=== PATIENT | male | born 1950 | race Caucasian/White ===

== ENCOUNTER 2017-04-05 10:39 | Inpatient (IN) | payer MEDICARE ==
[~2017-04-05] VITALS: Ht 175.3 cm; Wt 82.0 kg
[~2017-04-05 10:39] MED LIST: ACET325 PO; ALBU90OI INH; ALBU90OI6; ALBU90OI61 INH; AMLO5 PO; ASPI325 PO; ASPI325EC PO; ASPI81CH PO; ATOR20 PO; Aspirin325 MG PO; BENZ100A PO; CLOP75 PO; DELTASONE20 MG PO; FURO20 PO; ISOMON20 PO; ISOMON30 PO; Isosorbide Mono60 MG PO; LANS30EC PO; LEVO750 PO; LEVSOD100 PO; LEVSOD50 PO; LEVSOD75 PO; LISI5 PO; MEGA MULTIVIT1 EAC1 PO; METO50 PO; MULVITMIND PO; NITR.4SL SL; NITR.6SL SL; PANT40; PANT40 PO; POTCHL20ER PO; PRED20 PO; Plavix75 MG PO; Q-Tussin100 MG/5 M PO; RANI150; RANO500T PO; ROBITUSSIN COU118 M1 PO; ROSU10TA PO; THYR60 PO; ZANTAC
[2017-04-05 11:38] LABS: BASOPHILS ABSOLUTE AUTO 0.02 K/mm3 (0.00-0.23); BASOPHILS PERCENT AUTO 0 % (0-2); EOSINOPHILS ABSOLUTE AUTO 0.14 K/mm3 (0.00-0.68); EOSINOPHILS PERCENT AUTO 2 % (0-6); Hematocrit 45.7 % (37.0-53.0); Hemoglobin 15.7 g/dL (13.5-17.5); IMMATURE GRAN ABSOLUTE AUTO 0.02 K/mm3 (0.00-0.10); IMMATURE GRAN PERCENT AUTO 0 % (0-1); LYMPHOCYTES ABSOLUTE AUTO 2.07 K/mm3 (0.84-5.20); LYMPHOCYTES PERCENT AUTO 28 % (21-46); MONOCYTES ABSOLUTE AUTO 0.56 K/mm3 (0.16-1.47); MONOCYTES PERCENT AUTO 8 % (4-13); Mean Corpuscular HGB 32.9 pg (26.0-34.0); Mean Corpuscular HGB Conc 34.4 g/dL (31.5-36.5); Mean Corpuscular Volume 96 fL (80-100); Mean Platelet Volume 9.9 fL (9.1-12.4); NEUTROPHILS ABSOLUTE AUTO 4.67 K/mm3 (1.96-9.15); NEUTROPHILS PERCENT AUTO 62 % (41-73); Platelet Count 187 K/mm3 (150-400); RDW Coefficient Variation 14.9 % (11.7-14.2); RDW Standard Deviation 52.1 fL (35.1-46.3); Red Blood Cell Count 4.77 M/mm3 (4.30-5.90); White Blood Cell Count 7.48 K/mm3 (4.00-11.30)
[2017-04-05] MEDS ORDERED: NITR.4SL SL (11:45)
[2017-04-05] MEDS ORDERED: LOSA25 PO (11:46)
[2017-04-05] MEDS ORDERED: Pantoprazole So40 MG PO (11:46)
[2017-04-05] MEDS ORDERED: Isosorbide Mono60 MG PO (11:47)
[2017-04-05 11:55] LABS: Alanine Aminotransfer (ALT/SGP 22 U/L (12-78); Albumin, Blood 3.8 g/dL (3.4-5.0); Albumin/Globulin Ratio 1.1 (0.8-1.8); Alk Phos 107 U/L (50-136); Anion Gap 8 mmol/L (6-16); Aspartate Aminotrans (AST/SGOT 19 U/L (12-37); Blood Urea Nitrogen 12 mg/dL (8-24); CO2, Blood 27 mmol/L (21-32); Chloride, Blood 105 mmol/L (98-108); Creatinine, Blood 0.75 mg/dL (0.60-1.20); Globulin, Blood 3.4 g/dL (2.2-4.0); Glomerular Filtration Rate >60 (60-); Glucose, Blood 89 mg/dL (70-99); Potassium, Blood 3.5 mmol/L (3.5-5.5); Sodium, Blood 140 mmol/L (136-145); Total Protein, Blood 7.2 g/dL (6.4-8.2); Troponin I <0.015 ng/mL (0.000-0.040)
[2017-04-05 11:59] LABS: PCO2 Arterial 31.8 mmHg (35-45); PO2 Arterial 52.9 mmHg (80-100); pH Blood Arterial 7.48 (7.35-7.45)
[2017-04-05] MEDS ORDERED: LEVSOD50 PO (14:54)
[2017-04-06 05:38] LABS: Anion Gap 11 mmol/L (6-16); Blood Urea Nitrogen 16 mg/dL (8-24); Bun/Creatinine Ratio 21.9 (12.0-20.0); CO2, Blood 26 mmol/L (21-32); Chloride, Blood 101 mmol/L (98-108); Creatinine, Blood 0.73 mg/dL (0.60-1.20); Glomerular Filtration Rate >60 (60-); Glucose, Blood 134 mg/dL (70-99); Potassium, Blood 3.6 mmol/L (3.5-5.5); Sodium, Blood 138 mmol/L (136-145)
[2017-04-07 05:38] LABS: BASOPHILS ABSOLUTE AUTO 0.01 K/mm3 (0.00-0.23); BASOPHILS PERCENT AUTO 0 % (0-2); EOSINOPHILS PERCENT AUTO 0 % (0-6); Hematocrit 45.7 % (37.0-53.0); Hemoglobin 15.3 g/dL (13.5-17.5); IMMATURE GRAN ABSOLUTE AUTO 0.08 K/mm3 (0.00-0.10); IMMATURE GRAN PERCENT AUTO 0 % (0-1); LYMPHOCYTES ABSOLUTE AUTO 1.33 K/mm3 (0.84-5.20); LYMPHOCYTES PERCENT AUTO 7 % (21-46); MONOCYTES ABSOLUTE AUTO 0.65 K/mm3 (0.16-1.47); MONOCYTES PERCENT AUTO 4 % (4-13); Mean Corpuscular HGB 32.6 pg (26.0-34.0); Mean Corpuscular HGB Conc 33.5 g/dL (31.5-36.5); Mean Corpuscular Volume 97 fL (80-100); Mean Platelet Volume 10.3 fL (9.1-12.4); NEUTROPHILS ABSOLUTE AUTO 16.37 K/mm3 (1.96-9.15); NEUTROPHILS PERCENT AUTO 89 % (41-73); Platelet Count 184 K/mm3 (150-400); RDW Coefficient Variation 15.2 % (11.7-14.2); Red Blood Cell Count 4.69 M/mm3 (4.30-5.90); White Blood Cell Count 18.44 K/mm3 (4.00-11.30)
[2017-04-07 06:04] LABS: Anion Gap 9 mmol/L (6-16); Blood Urea Nitrogen 19 mg/dL (8-24); Bun/Creatinine Ratio 25.1 (12.0-20.0); CO2, Blood 26 mmol/L (21-32); Calcium, Blood 8.9 mg/dL (8.5-10.1); Chloride, Blood 104 mmol/L (98-108); Creatinine, Blood 0.76 mg/dL (0.60-1.20); Glomerular Filtration Rate >60 (60-); Glucose, Blood 118 mg/dL (70-99); Sodium, Blood 139 mmol/L (136-145)
[2017-04-08 05:17] LABS: Hematocrit 45.5 % (37.0-53.0); Hemoglobin 15.4 g/dL (13.5-17.5); Mean Corpuscular HGB 32.9 pg (26.0-34.0); Mean Corpuscular HGB Conc 33.8 g/dL (31.5-36.5); Mean Corpuscular Volume 97 fL (80-100); Mean Platelet Volume 10.1 fL (9.1-12.4); Platelet Count 221 K/mm3 (150-400); RDW Coefficient Variation 15.1 % (11.7-14.2); RDW Standard Deviation 53.5 fL (35.1-46.3); Red Blood Cell Count 4.68 M/mm3 (4.30-5.90); White Blood Cell Count 18.84 K/mm3 (4.00-11.30)
[2017-04-08 05:36] LABS: Anion Gap 7 mmol/L (6-16); Blood Urea Nitrogen 18 mg/dL (8-24); Bun/Creatinine Ratio 23.2 (12.0-20.0); CO2, Blood 29 mmol/L (21-32); Calcium, Blood 8.6 mg/dL (8.5-10.1); Chloride, Blood 105 mmol/L (98-108); Creatinine, Blood 0.78 mg/dL (0.60-1.20); Glomerular Filtration Rate >60 (60-); Glucose, Blood 99 mg/dL (70-99); Potassium, Blood 3.6 mmol/L (3.5-5.5); Sodium, Blood 141 mmol/L (136-145)
[2017-04-08] MEDS ORDERED: Aspir 8181 MG PO (13:39)
[2017-04-08] MEDS ORDERED: FURO40 PO (13:39)
[2017-04-08] MEDS ORDERED: PRED20 PO (13:41)
[2017-04-08] MEDS ORDERED: SPIR25 PO (13:42)
[2017-04-08] MEDS ORDERED: DEEP SEA44 ML (13:44)
== END 2017-04-08 14:12 | disposition home or self-care (01) | DRG 189 ==
LOC: ER 10:39 → MEDS 13:09 → ENPENDDIS 04-08 10:30 → MEDS 04-08 14:12
PROVIDERS: Emergency Medicine; Internal Medicine
DX: J96.21 Acute and chronic respiratory failure with hypoxia (principal); I50.33 Acute on chronic diastolic (congestive) heart failure; J44.9 Chronic obstructive pulmonary disease, unspecified; Z99.81 Dependence on supplemental oxygen; I25.10 Atherosclerotic heart disease of native coronary artery without angina pectoris; G47.33 Obstructive sleep apnea (adult) (pediatric); E78.5 Hyperlipidemia, unspecified; E03.9 Hypothyroidism, unspecified; R73.9 Hyperglycemia, unspecified; T38.0X5A Adverse effect of glucocorticoids and synthetic analogues, initial encounter; Z88.2 Allergy status to sulfonamides; Z88.8 Allergy status to other drugs, medicaments and biological substances; Z91.012 Allergy to eggs; Z91.011 Allergy to milk products; Z95.5 Presence of coronary angioplasty implant and graft; Z79.02 Long term (current) use of antithrombotics/antiplatelets; Z79.899 Other long term (current) drug therapy
CPT/HCPCS: 36415; 36600; 71046; 71260; 80048; 80053; 82803; 82947; 83880; 84484; 85025; 85027; 85379; 93005; 93010; 94640; 94760; 94761; 96374; 99285; J1650; J1940; J2920; J2930; Q9967

== ENCOUNTER 2017-11-06 12:03 | Emergency (ER) | payer MEDICARE ==
[~2017-11-06] VITALS: Ht 167.6 cm; Wt 81.7 kg
[~2017-11-06 12:03] MED LIST changes: +Aspir 8181 MG PO; +DEEP SEA44 ML; +FURO40 PO; +LOSA25 PO; +Pantoprazole So40 MG PO; +SPIR25 PO
== END 2017-11-06 13:16 | disposition home or self-care (01) ==
LOC: ER 12:03
DX: S09.90XA Unspecified injury of head, initial encounter (principal); S01.111A Laceration without foreign body of right eyelid and periocular area, initial encounter; S60.512A Abrasion of left hand, initial encounter; S60.511A Abrasion of right hand, initial encounter; S40.812A Abrasion of left upper arm, initial encounter; S40.811A Abrasion of right upper arm, initial encounter; S80.212A Abrasion, left knee, initial encounter; S80.211A Abrasion, right knee, initial encounter; Z91.011 Allergy to milk products; Z91.012 Allergy to eggs; Z88.2 Allergy status to sulfonamides; Z91.018 Allergy to other foods; Z88.5 Allergy status to narcotic agent; Z88.8 Allergy status to other drugs, medicaments and biological substances; Z79.899 Other long term (current) drug therapy; Z79.51 Long term (current) use of inhaled steroids; E03.9 Hypothyroidism, unspecified; I25.2 Old myocardial infarction; I48.91 Unspecified atrial fibrillation; F17.200 Nicotine dependence, unspecified, uncomplicated; W01.0XXA Fall on same level from slipping, tripping and stumbling without subsequent striking against object, initial encounter
CPT/HCPCS: 12011; 70450; 99284-25

== ENCOUNTER 2018-03-24 00:29 | Inpatient (IN) | payer MEDICARE ==
[~2018-03-24] VITALS: Ht 172.7 cm; Wt 80.0 kg
== END 2018-03-24 15:00 | disposition short-term general hospital (02) | DRG 246 ==
LOC: MHTC NI 00:29 → PCU 09:59
PROC: 4A023N6 Measurement of Cardiac Sampling and Pressure, Right Heart, Percutaneous Approach (ICD-10-PCS; principal; 2018-03-24)
PROC: 027337Z Dilation of Coronary Artery, Four or More Arteries with Four or More Drug-eluting Intraluminal Devices, Percutaneous Approach (ICD-10-PCS; 2018-03-24)
PROC: B211YZZ Fluoroscopy of Multiple Coronary Arteries using Other Contrast (ICD-10-PCS; 2018-03-24)
DX: I25.10 Atherosclerotic heart disease of native coronary artery without angina pectoris (principal); I10 Essential (primary) hypertension; E03.9 Hypothyroidism, unspecified; Z85.46 Personal history of malignant neoplasm of prostate; Z87.891 Personal history of nicotine dependence; J44.9 Chronic obstructive pulmonary disease, unspecified; Z95.0 Presence of cardiac pacemaker
CPT/HCPCS: 85347; 92978; 92979; 93288; 93306; 93458; 93571; 99152; 99153; C1753; C1769; C1887; C1894; J1644; J2250; J3010; J7030; Q9967

== ENCOUNTER → 2018-03-24 | Outpatient (CLI) | payer MEDICARE ==
[2018-03-24 10:31] LABS: BASOPHILS ABSOLUTE AUTO 0.04 K/mm3 (0.00-0.23); BASOPHILS PERCENT AUTO 1 % (0-2); EOSINOPHILS PERCENT AUTO 1 % (0-6); Hematocrit 49.5 % (37.0-53.0); Hemoglobin 16.6 g/dL (13.5-17.5); IMMATURE GRAN ABSOLUTE AUTO 0.07 K/mm3 (0.00-0.10); IMMATURE GRAN PERCENT AUTO 1 % (0-1); LYMPHOCYTES ABSOLUTE AUTO 1.13 K/mm3 (0.84-5.20); LYMPHOCYTES PERCENT AUTO 14 % (21-46); MONOCYTES PERCENT AUTO 9 % (4-13); Mean Corpuscular HGB 34.1 pg (26.0-34.0); Mean Corpuscular HGB Conc 33.5 g/dL (31.5-36.5); Mean Corpuscular Volume 102 fL (80-100); Mean Platelet Volume 9.6 fL (9.1-12.4); NEUTROPHILS ABSOLUTE AUTO 6.01 K/mm3 (1.96-9.15); NEUTROPHILS PERCENT AUTO 75 % (41-73); Platelet Count 197 K/mm3 (150-400); RDW Coefficient Variation 14.7 % (11.7-14.2); RDW Standard Deviation 55.6 fL (35.1-46.3); Red Blood Cell Count 4.87 M/mm3 (4.30-5.90); White Blood Cell Count 8.05 K/mm3 (4.00-11.30)
[2018-03-24 10:43] LABS: International Normalized Ratio 1.23; Prothrombin Time Results 12.5 Sec (9.7-11.5)
[2018-03-24 10:44] LABS: Anion Gap 7 mmol/L (6-16); Blood Urea Nitrogen 13 mg/dL (8-24); Bun/Creatinine Ratio 16.2 (12.0-20.0); CO2, Blood 29 mmol/L (21-32); Calcium, Blood 9.2 mg/dL (8.5-10.1); Chloride, Blood 106 mmol/L (98-108); Glomerular Filtration Rate >60 (60-); Glucose, Blood 84 mg/dL (70-99); Potassium, Blood 3.7 mmol/L (3.5-5.5); Sodium, Blood 142 mmol/L (136-145); Troponin I <0.015 ng/mL (0.000-0.040)
== END | disposition home or self-care (01) ==
LOC: LAB 10:22 → LAB SHORT 10:22
PROVIDERS: Internal Medicine Cardiovascular Disease
DX: R07.9 Chest pain, unspecified (principal); E03.9 Hypothyroidism, unspecified
CPT/HCPCS: 80048; 84443; 84484; 85025; 85610

== ENCOUNTER 2018-05-31 13:26 | Observation (INO) | payer MEDICARE ==
[~2018-05-31] VITALS: Ht 175.3 cm; Wt 76.7 kg
[2018-05-31 13:58] LABS: BASOPHILS ABSOLUTE AUTO 0.04 K/mm3 (0.00-0.23); BASOPHILS PERCENT AUTO 0 % (0-2); EOSINOPHILS ABSOLUTE AUTO 0.14 K/mm3 (0.00-0.68); EOSINOPHILS PERCENT AUTO 1 % (0-6); Hematocrit 46.9 % (37.0-53.0); Hemoglobin 15.8 g/dL (13.5-17.5); IMMATURE GRAN ABSOLUTE AUTO 0.08 K/mm3 (0.00-0.10); IMMATURE GRAN PERCENT AUTO 1 % (0-1); LYMPHOCYTES ABSOLUTE AUTO 1.37 K/mm3 (0.84-5.20); LYMPHOCYTES PERCENT AUTO 12 % (21-46); MONOCYTES ABSOLUTE AUTO 0.74 K/mm3 (0.16-1.47); MONOCYTES PERCENT AUTO 6 % (4-13); Mean Corpuscular HGB 34.1 pg (26.0-34.0); Mean Corpuscular HGB Conc 33.7 g/dL (31.5-36.5); Mean Corpuscular Volume 101 fL (80-100); Mean Platelet Volume 9.2 fL (9.1-12.4); NEUTROPHILS ABSOLUTE AUTO 9.38 K/mm3 (1.96-9.15); NEUTROPHILS PERCENT AUTO 80 % (41-73); Platelet Count 233 K/mm3 (150-400); RDW Standard Deviation 55.8 fL (35.1-46.3); Red Blood Cell Count 4.63 M/mm3 (4.30-5.90); White Blood Cell Count 11.75 K/mm3 (4.00-11.30)
[2018-05-31 14:32] LABS: Alanine Aminotransfer (ALT/SGP 31 U/L (12-78); Albumin, Blood 4.2 g/dL (3.4-5.0); Albumin/Globulin Ratio 1.2 (0.8-1.8); Alk Phos 108 U/L (50-136); Anion Gap 11 mmol/L (6-16); Aspartate Aminotrans (AST/SGOT 27 U/L (12-37); Bilirubin, Total 1.1 mg/dL (0.1-1.0); Blood Urea Nitrogen 18 mg/dL (8-24); Bun/Creatinine Ratio 16.7 (12.0-20.0); CO2, Blood 27 mmol/L (21-32); Calcium, Blood 9.3 mg/dL (8.5-10.1); Chloride, Blood 104 mmol/L (98-108); Creatinine, Blood 1.08 mg/dL (0.60-1.20); Globulin, Blood 3.4 g/dL (2.2-4.0); Glomerular Filtration Rate >60 (60-); Glucose, Blood 115 mg/dL (70-99); Potassium, Blood 3.9 mmol/L (3.5-5.5); Sodium, Blood 142 mmol/L (136-145); Total Protein, Blood 7.6 g/dL (6.4-8.2); Troponin I <0.015 ng/mL (0.000-0.040)
[2018-05-31] MEDS ORDERED: ASPI325 PO (20:12)
[2018-05-31] MEDS ORDERED: ATOR80 PO (20:13)
[2018-05-31] MEDS ORDERED: Omeprazole20 M1 PO (20:13)
[2018-05-31] MEDS ORDERED: RANO500T PO (20:14)
[2018-05-31] MEDS ORDERED: METO25ER PO (20:14)
[2018-05-31] MEDS ORDERED: Amlodipine Bes2.5 MG PO (20:15)
[2018-05-31] MEDS ORDERED: TAMS.4ER PO (20:15)
[2018-06-01 02:46] LABS: International Normalized Ratio 1.28; Prothrombin Time Results 13.3 Sec (9.7-11.5)
[2018-06-01 02:50] LABS: Anion Gap 6 mmol/L (6-16); Blood Urea Nitrogen 20 mg/dL (8-24); Bun/Creatinine Ratio 20.4 (12.0-20.0); CO2, Blood 29 mmol/L (21-32); Calcium, Blood 8.2 mg/dL (8.5-10.1); Chloride, Blood 106 mmol/L (98-108); Creatinine, Blood 0.98 mg/dL (0.60-1.20); Glomerular Filtration Rate >60 (60-); Glucose, Blood 117 mg/dL (70-99); Potassium, Blood 3.5 mmol/L (3.5-5.5); Sodium, Blood 141 mmol/L (136-145); Very Low Density Lipoprot Chol 11 mg/dL (6-32)
[2018-06-01 02:51] LABS: CHOL/HDL RATIO 1.8; Cholesterol 82 mg/dL (50-200); HDL Cholesterol 45 mg/dL (>39); LDL/HDL RATIO 0.6; Low Density Lipoprotein Chol 26 mg/dL (0-110); Triglycerides 57 mg/dL (30-160)
--- NOTE | 2018-06-01 05:07 | NUR ---
SHIFT SUMMARY PT ALERT AND ORIENTED. VS STABLE. PT STATES HIS BP TENDS TO BE LOW. O2 SATS >90% ON 2L NC. PT STATES HIS CHEST PAIN HAS REMAINED BELOW A 5/10 THAT IS TOLERABLE FOR HIM. PT HAS RESTED MOST OF SHIFT SINCE HIS ARRIVAL. PT HAS BEEN NPO SINCE MIDNIGHT. NO CHANGES SINCE INITIAL ASSESSMENT. WILL CONTINUE TO MONITOR AND REPORT TO ONCOMING RN. CALL LIGHT IN REACH.
--- NOTE | 2018-06-01 08:53 | NUR ---
PCU DAYSHIFT ASSUMED CARE OF PT APPROX. 0700. PT A&O X4. ASSESSMENT COMPLETED. VITAL SIGNS STABLE. PMD AND TRANSIT WORKER INTO SEE PT THIS MORNING. PMD TO PUT DISCHARGE ORDERS IN AND PT TO FOLLOW UP WITH CARDIOLOGY OUTPATIENT. PT REPORTS THAT PAIN IN CHEST AREA REMAINS UNCHANGED. CARDIOLIGST REPORTS MAY BE G.I. RELATED. NO S/SX OF ACUTE DISTRESS AT THIS TIME. WILL CONTINUE TO MONITOR.
[2018-06-01 09:50] LABS: Amylase, Blood 24 U/L (25-115)
--- NOTE | 2018-06-01 10:08 | NUR ---
Echocardiogram completed.
--- NOTE | 2018-06-01 10:55 | NUR ---
DISCHARGE DISCHARGE RODERS RECIEVED FROM PMD. DISCHARGE PAPERWORK COMPLETED. MED REC. COMPLETED. REVIEWED DISCHARGE PAPERWORK WITH PT. PT TO BE ESCORTED BY PEER STAFF MEMBER VIA WHEELCHAIR TO [facility]. WILL CONTINUE TO MONITOR UNTIL PT DEPARTS UNIT
== END 2018-06-01 12:28 | disposition home or self-care (01) ==
LOC: ER 13:26 → PCU 13:27
PROVIDERS: Internal Medicine Cardiovascular Disease; Nurse Practitioner Acute Care; Physician Assistant; ADMIT Internal Medicine
DX: R07.89 Other chest pain (principal); I25.2 Old myocardial infarction; I95.9 Hypotension, unspecified; I25.10 Atherosclerotic heart disease of native coronary artery without angina pectoris; I73.9 Peripheral vascular disease, unspecified; E78.5 Hyperlipidemia, unspecified; K21.9 Gastro-esophageal reflux disease without esophagitis; J43.9 Emphysema, unspecified; I70.0 Atherosclerosis of aorta; E03.9 Hypothyroidism, unspecified; I48.91 Unspecified atrial fibrillation; I51.7 Cardiomegaly; Z95.5 Presence of coronary angioplasty implant and graft; Z95.0 Presence of cardiac pacemaker; Z79.899 Other long term (current) drug therapy; Z88.2 Allergy status to sulfonamides; Z88.8 Allergy status to other drugs, medicaments and biological substances; Z91.012 Allergy to eggs; Z91.011 Allergy to milk products; Z88.5 Allergy status to narcotic agent; Z91.018 Allergy to other foods; Z90.49 Acquired absence of other specified parts of digestive tract; Z87.442 Personal history of urinary calculi; Z79.02 Long term (current) use of antithrombotics/antiplatelets; Z87.891 Personal history of nicotine dependence
CPT/HCPCS: 36415; 71046; 71275; 74175; 80048; 80053; 80061; 82150; 83690; 83880; 84484; 85025; 85610; 93005; 93010; 93308; 93321; 96372; G0378; J1650; J2270; J2405; J7030; Q9967

== ENCOUNTER 2018-06-30 18:03 | Inpatient (IN) | payer MEDICARE ==
[~2018-06-30] VITALS: Ht 172.7 cm; Wt 75.0 kg
[~2018-06-30 18:03] MED LIST changes: +ATOR80 PO; +Amlodipine Bes2.5 MG PO; +METO25ER PO; +Omeprazole20 M1 PO; +TAMS.4ER PO
[2018-06-30 18:37] LABS: BASOPHILS ABSOLUTE AUTO 0.04 K/mm3 (0.00-0.23); BASOPHILS PERCENT AUTO 0 % (0-2); EOSINOPHILS ABSOLUTE AUTO 0.12 K/mm3 (0.00-0.68); EOSINOPHILS PERCENT AUTO 1 % (0-6); Hematocrit 45.5 % (37.0-53.0); Hemoglobin 15.5 g/dL (13.5-17.5); IMMATURE GRAN ABSOLUTE AUTO 0.11 K/mm3 (0.00-0.10); IMMATURE GRAN PERCENT AUTO 1 % (0-1); LYMPHOCYTES ABSOLUTE AUTO 1.18 K/mm3 (0.84-5.20); LYMPHOCYTES PERCENT AUTO 9 % (21-46); MONOCYTES ABSOLUTE AUTO 0.88 K/mm3 (0.16-1.47); MONOCYTES PERCENT AUTO 7 % (4-13); Mean Corpuscular HGB 34.1 pg (26.0-34.0); Mean Corpuscular HGB Conc 34.1 g/dL (31.5-36.5); Mean Corpuscular Volume 100 fL (80-100); Mean Platelet Volume 9.5 fL (9.1-12.4); NEUTROPHILS ABSOLUTE AUTO 10.46 K/mm3 (1.96-9.15); NEUTROPHILS PERCENT AUTO 82 % (41-73); Platelet Count 190 K/mm3 (150-400); RDW Coefficient Variation 15.4 % (11.7-14.2); RDW Standard Deviation 56.7 fL (35.1-46.3); Red Blood Cell Count 4.54 M/mm3 (4.30-5.90); White Blood Cell Count 12.79 K/mm3 (4.00-11.30)
[2018-06-30 19:02] LABS: Alanine Aminotransfer (ALT/SGP 22 U/L (12-78); Albumin/Globulin Ratio 1.2 (0.8-1.8); Alk Phos 108 U/L (50-136); Anion Gap 7 mmol/L (6-16); Aspartate Aminotrans (AST/SGOT 15 U/L (12-37); Bilirubin, Total 1.2 mg/dL (0.1-1.0); Blood Urea Nitrogen 16 mg/dL (8-24); Bun/Creatinine Ratio 20.7 (12.0-20.0); CO2, Blood 27 mmol/L (21-32); Calcium, Blood 9.1 mg/dL (8.5-10.1); Chloride, Blood 101 mmol/L (98-108); Creatinine, Blood 0.77 mg/dL (0.60-1.20); Globulin, Blood 3.4 g/dL (2.2-4.0); Glomerular Filtration Rate >60 (60-); Glucose, Blood 148 mg/dL (70-99); Potassium, Blood 3.5 mmol/L (3.5-5.5); Sodium, Blood 135 mmol/L (136-145); Total Protein, Blood 7.4 g/dL (6.4-8.2); Troponin I <0.015 ng/mL (0.000-0.040)
[2018-06-30] MEDS ORDERED: ALBU90OI61 INH (20:06)
[2018-06-30] MEDS ORDERED: ANORO ELLIPTA1 EACH INH (20:06)
[2018-06-30] MEDS ORDERED: Flonase 0.05% N16 GM (20:44)
[2018-07-01 01:09] LABS: Adenovirus Not Detected (NOT DETECT); Bordetella pertussis Not Detected (NOT DETECT); Chlamydophila pneumoniae Not Detected (NOT DETECT); Coronavirus 229E Not Detected (NOT DETECT); Coronavirus HKU1 Not Detected (NOT DETECT); Coronavirus NL63 Not Detected (NOT DETECT); Coronavirus OC43 Not Detected (NOT DETECT); Human Metapneumovirus Not Detected (NOT DETECT); Human Rhinovirus/Enterovirus Not Detected (NOT DETECT); Influenza A Not Detected (NOT DETECT); Influenza A/2009-H1 Not Detected (NOT DETECT); Influenza A/H1 Not Detected (NOT DETECT); Influenza A/H3 Not Detected (NOT DETECT); Influenza B Not Detected (NOT DETECT); Mycoplasma pneumoniae Not Detected (NOT DETECT); Parainfluenza Virus 1 Not Detected (NOT DETECT); Parainfluenza Virus 2 Not Detected (NOT DETECT); Parainfluenza Virus 3 Not Detected (NOT DETECT); Parainfluenza Virus 4 Not Detected (NOT DETECT); Respiratory Syncytial Virus Not Detected (NOT DETECT)
[2018-07-01 01:15] LABS: Hematocrit 40.9 % (37.0-53.0); Hemoglobin 13.7 g/dL (13.5-17.5); Mean Corpuscular HGB 34.4 pg (26.0-34.0); Mean Corpuscular HGB Conc 33.5 g/dL (31.5-36.5); Mean Platelet Volume 9.4 fL (9.1-12.4); Platelet Count 162 K/mm3 (150-400); RDW Coefficient Variation 15.3 % (11.7-14.2); RDW Standard Deviation 59.2 fL (35.1-46.3); Red Blood Cell Count 3.98 M/mm3 (4.30-5.90); White Blood Cell Count 12.67 K/mm3 (4.00-11.30)
[2018-07-01 01:20] LABS: Mean Corpuscular Volume 103 fL (80-100)
[2018-07-01 01:38] LABS: Alanine Aminotransfer (ALT/SGP 20 U/L (12-78); Albumin, Blood 3.5 g/dL (3.4-5.0); Albumin/Globulin Ratio 1.1 (0.8-1.8); Alk Phos 86 U/L (50-136); Anion Gap 8 mmol/L (6-16); Aspartate Aminotrans (AST/SGOT 13 U/L (12-37); Blood Urea Nitrogen 19 mg/dL (8-24); CO2, Blood 27 mmol/L (21-32); Calcium, Blood 8.4 mg/dL (8.5-10.1); Chloride, Blood 102 mmol/L (98-108); Creatinine, Blood 0.95 mg/dL (0.60-1.20); Globulin, Blood 3.1 g/dL (2.2-4.0); Glomerular Filtration Rate >60 (60-); Glucose, Blood 132 mg/dL (70-99); Potassium, Blood 3.8 mmol/L (3.5-5.5); Sodium, Blood 137 mmol/L (136-145); Total Protein, Blood 6.6 g/dL (6.4-8.2)
--- NOTE | 2018-07-01 07:38 | NUR ---
SHIFT SUMMARY PATIENT ADMITTED EARLIER THIS SHIFT FROM THE ER AND WAS ABLE TO TRANSFER SELF FROM THE GURNEY TO THE BED. HOWEVER, MANAGER CONSUMER INSIGHTS DID REPORT THAT PATIENT HAD A NEAR SYNCOPAL EVENT DOWN IN ER WHILE WALKING TO THE BATHROOM SHORTLY BEFORE ARRIVAL TO PCU. PATIENT EDUCATED ON FALL RISK AND AGREED TO CALL STAFF BEFORE GETTING UP. PATIENT ORIENTED TO THE ROOM, UNIT, AND CALL LIGHT. PATIENT ARRIVED ON 2L VIA N/C, PATIENT STATES HE DOES NOT USE ANY O2 AT HOME. PATIENT INCREASED TO 3L WHILE SLEEPING TO MAINTAIN O2 STATS. PATIENT REPORTED UPON ARRIVAL TO THE UNIT THAT HIS CHEST PAIN WAS A 7/10. HOWEVER, PATIENT REFUSED ANY PAIN MEDICATION. PATIENT THEN ABLE TO FALL ASLEEP AND APPEARED TO REST WELL THROUGHOUT THE REST OF THE NIGHT. IV FLUIDS AND ABX GIVEN PER ORDERS. REPORT GIVEN TO ONCOMING RN.
--- NOTE | 2018-07-01 10:17 | NUR ---
SHIFT NOTE ASSUMED CARE OF PT AT APPROX 0700. VSS AND CONSISTANT WITH VS FROM LIQUID CENTER ASSEMBLER. PT WITH MAINTAINED BP OF 90/60. PT REPORT THAT THIS IS A NORMAL BP FOR HIM. HELD AMLODIPINE, SPIRONOLACTONE, AND METOPROLOL THIS AM D/T LOW SYSTOLIC BP. PT C/O PAIN, SHARP WITH PRESSURE IN THE CHEST WITH INHALATION. PT. PT DENIES PAIN MEDICATION AT THIS TIME. CAT HOSE IN PLACE, BILAT CALF WNL, NO SWELLING, NO REDNESS, AND NO PAIN NOTED. PT EDUCATED ON DVT S/SX. BILAT PEDAL PULSE PALPABLE. ECHO IN THIS AM, AWAITING RESULTS. PT CALM AND COOPERATIVE DURING PROCEDURE. PT EDUCATED ON CLEAN CATCH TECHNIQUE FOR UA, COLLECTED SAMPLE AND SENT TO LAB. THIS RN CHANGED THE RAC IV DRESSING THIS AM. BOTH IV PATENT AND FLUSH WELL, AND ARE SL. NO ACUTE EPISODES NOTED ON TELE - PT IN SR WITH BBB, HR SUSTAINING IN THE 80'S. PT ON 3 L NC WITH O2 IN THE LOW TO MID 90'S. PT ON RA AT HOME AT BASELINE. SEE SHIFT ASSESSMENT FOR DETAILED ASSESSMENT. THIS RN WILL CONTINUE TO MONITOR.
[2018-07-01 10:35] LABS: Source, Urine Clean Catch
[2018-07-01 10:41] LABS: Blood, Urine Neg (Neg); Glucose Qualitative, Urine Neg (Neg); Ketones, Urine 1+ (Neg); Leukocyte Esterase, Urine 1+ (Neg); Nitrite, Urine Neg (Neg); Protein, Urine 3+ (Neg); Specific Gravity, Urine 1.025 (1.003-1.022); Urobilinogen, Urine 2+ (Normal)
[2018-07-01 10:47] LABS: Appearance, Urine Clear (Clear); Bilirubin, Urine 1+ (Neg); Color, Urine Amber (P-Yellow)
[2018-07-01 10:48] LABS: Red Blood Cells, Urine Not Seen /hpf (0-2); White Blood Cells, Urine 0-2 /hpf (0-5)
[2018-07-01 10:49] LABS: Bacteria Rare /hpf; Mucus Light (0-Heavy); Squamous Epithelial Cells Not Seen /hpf (Few)
--- NOTE | 2018-07-01 15:29 | NUR ---
UPDATE GIVEN TO DR. FROST AT 1529: PT COMPLAINT OF PAIN INCREASED FROM TOLERABLE 4 TO UNTOLERABLE 8. PAIN IS SHARP AND CONSTANT, SUB STERNAL PRESSURE. PREVIOUSLY, PT STATED THAT PAIN ONSET ONLY WITH INSPIRATION, NOW PAIN IS CONSTANT. TORDOL GIVEN AT APPROX 1515 AND THIS RN WILL RE-EVALUATE PAIN CONTROL. DR FROST ALSO NOTIFIED ON NEW ONSET PT C/O NEW ONSET HOT FLASHES AND CURRENT VS: BP 102/73 HR 95 RR 16 O2 94% ON 3 L NC T 98.4. DR FROST ALSO NOTIFIED THAT PT HAS VOIDED [address] FROST NOTIFIED THAT ECHO RESULTS ARE BACK. NO FURTHER ORDERS RECIEVED FROM DR FROST AT THIS TIME.
--- NOTE | 2018-07-01 16:25 | NUR ---
SHIFT SUMMARY VSS THIS SHIFT. ACUTE CHANGE IN PAIN REPORTED BY PT TO THIS RN AT APPROX 1500. PAIN INCREASE TO 8 AND CONSTANT IN DURATION OPPOSED TO INTERMIT WITH INSPIRATION. PT DESCRIBES PAIN SHARP AND STABBING WITH PRESSURE IN THE SUB STERNAL AREA OF THE CHEST. DR FROST NOTIFIED OF CHANGE AT 1530. TORADOL GIVEN PER DR ORDER OF PRN ONE TIME 30 MG DOSE AND PT CURRENTLY SLEEPING. ECHO COMPLETED THIS AM. PT AWAITING DR VISIT TO UPDATE PT ON RESULTS OF ECHO AND PLAN OF CARE. PT MAINTAINED SR WITH BBB TODAY PER TELE ENVIRONMENTAL HEALTH AND SAFETY INTERN. PT VOIDED ONLY 200 ML THIS SHIFT AND DR FROST NOTIFIED OF OUTPUT. THIS RN WILL CONTINUE TO MONITOR PT AND ASSESS FOR CHANGES PAIN LEVEL.
--- NOTE | 2018-07-01 21:24 | NUR ---
ASSUMED CARE OF PATIENT AT APPROXIMATELY 1900 FROM ANYA Reeves RN AND ROLY Allred RN. PATIENT ALERT AND ORIENTED X4; ASLEEP DURING BEDSIDE REPORT; FALLS ASLEEP EASILY WHEN STAFF IN ROOM. PATIENT REPORTS CP 4/10 "WHEN IM BREATHING"; WITH INSPIRATION. PATIENT DENIES NUMBNESS, TINGLING AND NAUSEA. PATIENT REPORTS DIZZINESS OCCASIONALLY UPON STANDING. PATIENT EDUCATED ON FALL RISK; WILL CALL BEFORE AMBLUATION. PATIENT SBP 85-98; REPORTS BLOOD PRESSURE NORMALLY 90'S. SR W/ BBB ON TELE; OXYGEN SATURATION ABOVE 90% ON 2LPM VIA NC; ON ROOM AIR AT HOME. PRN MEDICATION GIVEN FOR COUGH PER REQUEST. PATIENT VOIDED 100 ML OF FAVIO COLORED URINE INTO URINAL AT BEDSIDE. CAT HOSE IN PLACE. PATIENT CURRENTLY SLEEPING IN BED; CALL LIGHT IN REACH; BED IN LOWEST POSISTION; BED ALARM ON; WILL CONTINUE TO MONITOR AND ASSESS UNTIL END OF SHIFT.
[2018-07-02 03:55] LABS: BASOPHILS ABSOLUTE AUTO 0.04 K/mm3 (0.00-0.23); BASOPHILS PERCENT AUTO 0 % (0-2); EOSINOPHILS ABSOLUTE AUTO 0.16 K/mm3 (0.00-0.68); EOSINOPHILS PERCENT AUTO 2 % (0-6); Hematocrit 42.3 % (37.0-53.0); IMMATURE GRAN ABSOLUTE AUTO 0.08 K/mm3 (0.00-0.10); IMMATURE GRAN PERCENT AUTO 1 % (0-1); LYMPHOCYTES ABSOLUTE AUTO 1.75 K/mm3 (0.84-5.20); LYMPHOCYTES PERCENT AUTO 19 % (21-46); MONOCYTES ABSOLUTE AUTO 1.08 K/mm3 (0.16-1.47); MONOCYTES PERCENT AUTO 11 % (4-13); Mean Corpuscular HGB 34.3 pg (26.0-34.0); Mean Corpuscular HGB Conc 33.1 g/dL (31.5-36.5); Mean Corpuscular Volume 104 fL (80-100); Mean Platelet Volume 9.8 fL (9.1-12.4); NEUTROPHILS ABSOLUTE AUTO 6.33 K/mm3 (1.96-9.15); NEUTROPHILS PERCENT AUTO 67 % (41-73); Platelet Count 159 K/mm3 (150-400); RDW Coefficient Variation 15.3 % (11.7-14.2); RDW Standard Deviation 59.3 fL (35.1-46.3); Red Blood Cell Count 4.08 M/mm3 (4.30-5.90); White Blood Cell Count 9.44 K/mm3 (4.00-11.30)
[2018-07-02 04:15] LABS: Alanine Aminotransfer (ALT/SGP 31 U/L (12-78); Albumin, Blood 3.1 g/dL (3.4-5.0); Alk Phos 85 U/L (50-136); Anion Gap 8 mmol/L (6-16); Aspartate Aminotrans (AST/SGOT 23 U/L (12-37); Bilirubin, Total 0.9 mg/dL (0.1-1.0); Blood Urea Nitrogen 29 mg/dL (8-24); Bun/Creatinine Ratio 29.5 (12.0-20.0); CO2, Blood 25 mmol/L (21-32); Calcium, Blood 8.2 mg/dL (8.5-10.1); Chloride, Blood 103 mmol/L (98-108); Creatinine, Blood 0.98 mg/dL (0.60-1.20); Glomerular Filtration Rate >60 (60-); Glucose, Blood 86 mg/dL (70-99); Magnesium, Blood 1.4 mg/dL (1.6-2.4); Potassium, Blood 4.1 mmol/L (3.5-5.5); Sodium, Blood 136 mmol/L (136-145); Total Protein, Blood 6.1 g/dL (6.4-8.2)
--- NOTE | 2018-07-02 12:07 | NUR ---
SHIFT NOTE ASSUMED CARE AT APPROX 0700 THIS AM. PT ALERT AND PLESANT, STATES THAT PAIN IS AT A COMFORTABLE 2 OUT OF 10. PT STATES THAT THEY ARE MUCH MORE COMFORTABLE THAN YESTERDAY. PT DENIES CONSTANT CHEST PAIN/PRESSURE. PT DENIES CHEST PAIN WITH INSPIRATION. PT STATES CHEST PAIN WITH COUGH. PT HAS BEEN RECIEVED BETWEEN 1-3 L O2 VIA NC SINCE THIS ADMISSION. TRIED RA BUT SATS DECREASED TO MID-HIGH 80'S. PT CURRENTLY PLACED BACK ON 1.5 L NC, SATURATIONS HAVE SINCE IMPROVED TO MID 90'S. DR FROST IN THIS AM TO SPEAK WITH PT ABOUT PLAN OF CARE. PER DR FROST, PT TRANSFERED FROM PCU STATUS TO MED STATUS WITH TELE. PT/OT ORDERS IN PER DR. FROST AND PHYSICAL THERAPY IN THIS AM WITH PT. PLAN OF CARE AT THIS TIME IS TO KEEP PT OVER NIGHT AT MEDICAL STATUS, PAIN CONTROL, AND STRENGTHEN AMBULATION PRIOR TO DC. CAT HOSE TAKEN OFF FOR RELIEF PER PT REQUEST. PT DENIES CALF TENDERNESS, SWELLING, AND PRESSURE. PEDAL PULSES PALPABLE, CAP REFIL LESS THAN THREE SECONDS IN BLE, NO EDEMA OR SWELLING NOTED BY THIS RN. MAG SULFATE INFUSED AND AWAITING LAB DRAW TO RECHECK MAG LEVEL.
--- NOTE | 2018-07-02 18:42 | NUR ---
SHIFT ASSESSMENT NO ACUTE CHANGES FOR THIS PT THIS SHIFT. PT RESTING COMFORTABLY, DENIES CHEST PAIN AND PRESSURE ALL SHIFT. THE ONLY COMPLAINT OF CHEST PAIN IS WHEN PT COUGHS. PT UP TODAY WITH PT, STEADY GAIT. METOPROLOL WAS HELD AGAIN TODAY D/T LOW SYSTOLIC BP PER DR FROST ORDERS. AMLODIPINE DC PER DR FROST ORDER TODAY D/T PT STATES "I DO NOT TAKE THIS MEDICATION AT HOME ANYMORE". PT PLEASANT, CALM, AND COOPERATIVE TODAY. PT STATES THAT HE WANTS TO REST AND TRY TO GET SOME SLEEP. PT NOW MED TELE STATUS AND NO LONGER PCU STATUS. POSSIBLE DC TOMORROW, 07/03/18.
--- NOTE | 2018-07-02 22:23 | NUR ---
ASSUMED CARE OF PATIENT AT APPROXIMATELY 1900 FROM ANYA Reeves RN AND RLOY Allred RN. PATIENT ALERT AND ORIENTED X4; FALLS ASLEEP EASILY WHEN STAFF IN ROOM. PATIENT REPORTS CP 3/10; PATIENT INCREASES WITH COUGHING; REFUSED PRN COUGH MEDICATION AND REFUSED PRN PAIN MEDICATION; STATES TOLERABLE AT THIS TIME; REPORTS NOT BAD LAST NIGHT. PATIENT DENIES NUMBNESS, TINGLING AND NAUSEA. PATIENT REPORTS HE IS ALWAYS DIZZY UPON STANDING. PATIENT EDUCATED ON FALL RISK; WILL CALL BEFORE AMBLUATION. PATIENT SBP 90'S; REPORTS BLOOD PRESSURE NORMALLY 90'S. SR W/ BBB ON TELE; OXYGEN SATURATION ABOVE 90% ON 1LPM VIA NC; ON ROOM AIR AT HOME. PATIENT REPORTS NO BM IN TWO DAYS; REQUESTED BOWEL PREP; CALLED MOHSEN ORDONEZ; ORDERS RECIEVED; URINE IS YELLOW; IMPROVED FROM LAST NIGHT; URINAL AT BEDSIDE. CAT HOSE IN PLACE. PATIENT CURRENTLY SLEEPING IN BED; CALL LIGHT IN REACH; BED IN LOWEST POSISTION; BED ALARM ON; WILL CONTINUE TO MONITOR AND ASSESS UNTIL END OF SHIFT.
[2018-07-03 03:59] LABS: BASOPHILS ABSOLUTE AUTO 0.03 K/mm3 (0.00-0.23); BASOPHILS PERCENT AUTO 0 % (0-2); EOSINOPHILS ABSOLUTE AUTO 0.12 K/mm3 (0.00-0.68); EOSINOPHILS PERCENT AUTO 1 % (0-6); Hematocrit 40.2 % (37.0-53.0); Hemoglobin 13.4 g/dL (13.5-17.5); IMMATURE GRAN ABSOLUTE AUTO 0.08 K/mm3 (0.00-0.10); IMMATURE GRAN PERCENT AUTO 1 % (0-1); LYMPHOCYTES PERCENT AUTO 13 % (21-46); MONOCYTES ABSOLUTE AUTO 0.71 K/mm3 (0.16-1.47); MONOCYTES PERCENT AUTO 8 % (4-13); Mean Corpuscular HGB 33.8 pg (26.0-34.0); Mean Corpuscular HGB Conc 33.3 g/dL (31.5-36.5); Mean Corpuscular Volume 102 fL (80-100); Mean Platelet Volume 10.1 fL (9.1-12.4); NEUTROPHILS PERCENT AUTO 76 % (41-73); Platelet Count 168 K/mm3 (150-400); RDW Coefficient Variation 15.1 % (11.7-14.2); RDW Standard Deviation 57.4 fL (35.1-46.3); Red Blood Cell Count 3.96 M/mm3 (4.30-5.90); White Blood Cell Count 8.54 K/mm3 (4.00-11.30)
[2018-07-03 04:15] LABS: Anion Gap 5 mmol/L (6-16); Blood Urea Nitrogen 24 mg/dL (8-24); Bun/Creatinine Ratio 29.3 (12.0-20.0); CO2, Blood 27 mmol/L (21-32); Calcium, Blood 8.7 mg/dL (8.5-10.1); Chloride, Blood 104 mmol/L (98-108); Creatinine, Blood 0.82 mg/dL (0.60-1.20); Glomerular Filtration Rate >60 (60-); Glucose, Blood 89 mg/dL (70-99); Magnesium, Blood 1.9 mg/dL (1.6-2.4); Sodium, Blood 136 mmol/L (136-145)
--- NOTE | 2018-07-03 06:54 | NUR ---
PATIENT SLEPT ABOUT TEN HOURS LAST NIGHT. NO ACUTE CHANGES TO REPORT. VSS.
--- NOTE | 2018-07-03 09:40 | NUR ---
ASSUMED CARE OF PT AT APPROX 0700 TODAY 07/03/18. RECIEVED HANDOFF FROM OFFGOING RN. PT AWAKE AND ALERT THIS AM. PT DENIES CHEST PAIN, CHEST PRESSURE, SOB, OR CHANGES IN MENTATION. PT C/O SHARP CP ONLY WHEN LYING ON THE LEFT SIDE AND COUGHING. VSS THIS MORNING AND NO ABNORMAL FINDINGS UPON ASSESSMENT. PT UP TO THE BATHROOM THIS MORNING INDEPENDENTLY, TOLERATED WELL. PT DENIES CHEST PAIN, PRESSURE, SOB, DIZZYNESS, OR LIGHTHEADEDNESS WITH AMBULATION. PT RECIEVED MEDICATIONS AND IS RESTING COMFORTABLY AWAITING DR FROST TO ROUND AND UPDATE ON PLAN OF CARE. POSSIBLE DISCHARGE TODAY.
--- NOTE | 2018-07-03 13:15 | NUR ---
DISCHARGE SUMMARY DISCHARGE ORDERS RECIEVED THIS AM FOR PT. HOME OXYGEN EVAL ORDER SENT TO RT PER DR FROST. HOME EVAL COMPLETED BY BAM RT AND RECOMMENDS 1 L O2 WITH ACTIVITY. PT EDUCATED ON RECOMMENDATION AND EXHIBITS KNOWLEGE AND COMPREHENSION. RT TO SET UP HOME O2 AND DELIVERY. VSS THIS SHIFT WITH NO COMPLAINS OF CHEST PAIN OR PRESSURE PER PT. PT UP IN ROOM AD ARISTEO TODAY WITH NO COMPLAINTS OF UNSTEADY GAIT, DIZZYNESS, NOR LIGHTHEADEDNESS. PT IN NO SIGNS OF DISTRESS THIS SHIFT. DISCHARGE COMPLETED AND PT LEFT BUILDING VIA [employer] AT 1300. PT GOING HOME VIA AUTOMOBILE DRIVEN BY , ABISAI.
== END 2018-07-03 13:50 | disposition home or self-care (01) | DRG 189 ==
LOC: ER 18:03 → PCU 21:21
PROVIDERS: Internal Medicine; Nurse Practitioner Acute Care; Physician Assistant; ADMIT Hospitalist
DX: J96.01 Acute respiratory failure with hypoxia (principal); I25.10 Atherosclerotic heart disease of native coronary artery without angina pectoris; G47.33 Obstructive sleep apnea (adult) (pediatric); E03.9 Hypothyroidism, unspecified; I48.91 Unspecified atrial fibrillation; Z95.5 Presence of coronary angioplasty implant and graft; Z95.0 Presence of cardiac pacemaker; E78.5 Hyperlipidemia, unspecified; R07.89 Other chest pain; I25.2 Old myocardial infarction; K21.9 Gastro-esophageal reflux disease without esophagitis; F17.210 Nicotine dependence, cigarettes, uncomplicated; J44.9 Chronic obstructive pulmonary disease, unspecified
CPT/HCPCS: 36415; 71046; 71260; 80048; 80053; 81001; 83735; 83880; 84145; 84443; 84484; 85025; 85027; 85379; 85651; 87086; 87486; 87581; 87633; 87798; 93005; 93010; 93308; 93321; 94760; 94761; 96374-59; 96375-59; 97110; 97161; 99285-25; J0456; J0696; J1650; J1885; J2270; J2405; J3475; J7030; J7050; Q9967

== ENCOUNTER 2018-08-19 00:08 | Observation (INO) | payer MEDICARE ==
[~2018-08-19] VITALS: Ht 175.3 cm; Wt 72.6 kg
[~2018-08-19 00:08] MED LIST changes: +ANORO ELLIPTA1 EACH INH; +Flonase 0.05% N16 GM
[2018-08-19] MEDS ORDERED: FURO40 PO (00:36)
[2018-08-19 01:17] LABS: BASOPHILS ABSOLUTE AUTO 0.05 K/mm3 (0.00-0.23); BASOPHILS PERCENT AUTO 1 % (0-2); EOSINOPHILS ABSOLUTE AUTO 0.25 K/mm3 (0.00-0.68); EOSINOPHILS PERCENT AUTO 3 % (0-6); Hematocrit 43.5 % (37.0-53.0); IMMATURE GRAN ABSOLUTE AUTO 0.08 K/mm3 (0.00-0.10); IMMATURE GRAN PERCENT AUTO 1 % (0-1); LYMPHOCYTES ABSOLUTE AUTO 1.56 K/mm3 (0.84-5.20); LYMPHOCYTES PERCENT AUTO 16 % (21-46); MONOCYTES ABSOLUTE AUTO 0.76 K/mm3 (0.16-1.47); MONOCYTES PERCENT AUTO 8 % (4-13); Mean Corpuscular HGB 35.1 pg (26.0-34.0); Mean Corpuscular HGB Conc 34.5 g/dL (31.5-36.5); Mean Corpuscular Volume 102 fL (80-100); Mean Platelet Volume 9.4 fL (9.1-12.4); NEUTROPHILS ABSOLUTE AUTO 6.95 K/mm3 (1.96-9.15); NEUTROPHILS PERCENT AUTO 72 % (41-73); Platelet Count 218 K/mm3 (150-400); RDW Coefficient Variation 15.7 % (11.7-14.2); RDW Standard Deviation 58.9 fL (35.1-46.3); Red Blood Cell Count 4.27 M/mm3 (4.30-5.90); White Blood Cell Count 9.65 K/mm3 (4.00-11.30)
[2018-08-19 01:34] LABS: International Normalized Ratio 1.22; Prothrombin Time Results 12.7 Sec (9.7-11.5)
[2018-08-19 01:36] LABS: Alanine Aminotransfer (ALT/SGP 34 U/L (12-78); Albumin, Blood 3.9 g/dL (3.4-5.0); Albumin/Globulin Ratio 1.2 (0.8-1.8); Alk Phos 96 U/L (50-136); Anion Gap 7 mmol/L (6-16); Aspartate Aminotrans (AST/SGOT 20 U/L (12-37); Bilirubin, Total 0.6 mg/dL (0.1-1.0); Blood Urea Nitrogen 25 mg/dL (8-24); CO2, Blood 28 mmol/L (21-32); Calcium, Blood 9.4 mg/dL (8.5-10.1); Chloride, Blood 104 mmol/L (98-108); Creatinine, Blood 0.96 mg/dL (0.60-1.20); Globulin, Blood 3.2 g/dL (2.2-4.0); Glomerular Filtration Rate >60 (60-); Glucose, Blood 109 mg/dL (70-99); Potassium, Blood 3.7 mmol/L (3.5-5.5); Sodium, Blood 139 mmol/L (136-145); Total Protein, Blood 7.1 g/dL (6.4-8.2)
[2018-08-19 03:07] LABS: Hematocrit 40.7 % (37.0-53.0)
[2018-08-19 07:40] LABS: Hematocrit 43.5 % (37.0-53.0); Hemoglobin 14.6 g/dL (13.5-17.5); Mean Corpuscular HGB 34.5 pg (26.0-34.0); Mean Corpuscular HGB Conc 33.6 g/dL (31.5-36.5); Mean Corpuscular Volume 103 fL (80-100); Mean Platelet Volume 9.6 fL (9.1-12.4); Platelet Count 221 K/mm3 (150-400); RDW Coefficient Variation 15.6 % (11.7-14.2); RDW Standard Deviation 59.3 fL (35.1-46.3); Red Blood Cell Count 4.23 M/mm3 (4.30-5.90); White Blood Cell Count 14.15 K/mm3 (4.00-11.30)
[2018-08-19 16:20] LABS: Hematocrit 41.3 % (37.0-53.0); Hemoglobin 13.9 g/dL (13.5-17.5)
--- NOTE | 2018-08-19 16:41 | NUR ---
SHIFT SUMMARY PATIENT A&O X4. INDEPENDENT IN THE ROOM. ARRIVED FROM ED WITH RHINO ROCKET TO NASAL CAVITY. C/O PAIN TO NOSE/FACE THROUGHOUT THE SHIFT. MEDICATED PER E JUN. DENIES ANY SOB OR NAUSEA. NO BLEEDING FROM NOSE THIS SHIFT. REG DIET SINCE LUNCH. NO ACUTE CHANGES. RN WILL CONTINUE TO MONITOR.
--- NOTE | 2018-08-20 04:05 | NUR ---
SHIFT SUMMARY PT PAIN WAS MANAGED WELL WITH PERIOD OF NAUSEA ALL TX PER EMAR. PT REPORTS FINDING POSITION OF COMFORT DIFFICULT. PT IS RESTLESS DUE TO UNABLE TO SLEEP. PT IS ASSESSED FREQUENTLY FOR DISCOMFORT. PT HAD NO BLOOD NOTED THIS SHIFT. PT IS EAGER TO GO HOME AND TRY TO REST. PT CURRENTLY SITTING ON EDGE OF BED. CALL LIGHT IN REACH.
[2018-08-20 05:30] LABS: BASOPHILS ABSOLUTE AUTO 0.02 K/mm3 (0.00-0.23); BASOPHILS PERCENT AUTO 0 % (0-2); EOSINOPHILS PERCENT AUTO 0 % (0-6); Hematocrit 40.4 % (37.0-53.0); Hemoglobin 13.6 g/dL (13.5-17.5); IMMATURE GRAN ABSOLUTE AUTO 0.06 K/mm3 (0.00-0.10); IMMATURE GRAN PERCENT AUTO 0 % (0-1); LYMPHOCYTES ABSOLUTE AUTO 0.79 K/mm3 (0.84-5.20); LYMPHOCYTES PERCENT AUTO 5 % (21-46); MONOCYTES ABSOLUTE AUTO 1.14 K/mm3 (0.16-1.47); MONOCYTES PERCENT AUTO 7 % (4-13); Mean Corpuscular HGB 35.1 pg (26.0-34.0); Mean Corpuscular HGB Conc 33.7 g/dL (31.5-36.5); Mean Corpuscular Volume 104 fL (80-100); Mean Platelet Volume 9.6 fL (9.1-12.4); NEUTROPHILS ABSOLUTE AUTO 13.44 K/mm3 (1.96-9.15); NEUTROPHILS PERCENT AUTO 87 % (41-73); Platelet Count 210 K/mm3 (150-400); RDW Coefficient Variation 15.5 % (11.7-14.2); RDW Standard Deviation 59.3 fL (35.1-46.3); Red Blood Cell Count 3.88 M/mm3 (4.30-5.90); White Blood Cell Count 15.45 K/mm3 (4.00-11.30)
[2018-08-20] MEDS ORDERED: Percocet 10-321 EACH PO (11:27)
[2018-08-20] MEDS ORDERED: TRAM50 PO (11:28)
[2018-08-20] MEDS ORDERED: AMOX875 PO (11:30)
--- NOTE | 2018-08-20 15:45 | NUR ---
PATIENT D/C'D TO HOME WITH FAMILY. D/C INSTRUCTIONS AND EDUCATION DISCUSSED WITH PATIENT AND COPY PROVIDED. RX MEDICATIONS FAXED TO [facility] ON [address] AND [address] [address] FOR TRAMADOL AND PERCOCET GIVEN TO PATIENT. PATIENT DENIES ANY FURTHER QUESTIONS OR CONCERNS.
== END 2018-08-20 15:43 | disposition home or self-care (01) ==
LOC: ER 00:08 → MEDS 00:09 → ERHOLD 00:09 → ER 03:37 → ERHOLD 03:37 → MEDS 08:33 → ENPENDDIS 08-20 10:46 → MEDS 08-20 15:43
PROVIDERS: Emergency Medicine; Hospitalist; ADMIT Internal Medicine
DX: R04.0 Epistaxis (principal); I11.0 Hypertensive heart disease with heart failure; I50.22 Chronic systolic (congestive) heart failure; I25.10 Atherosclerotic heart disease of native coronary artery without angina pectoris; J44.9 Chronic obstructive pulmonary disease, unspecified; I48.91 Unspecified atrial fibrillation; E78.5 Hyperlipidemia, unspecified; E03.9 Hypothyroidism, unspecified; F17.210 Nicotine dependence, cigarettes, uncomplicated; Z79.899 Other long term (current) drug therapy; Z79.01 Long term (current) use of anticoagulants; Z79.82 Long term (current) use of aspirin; Z88.2 Allergy status to sulfonamides; Z88.5 Allergy status to narcotic agent; Z91.018 Allergy to other foods; Z91.012 Allergy to eggs; Z91.011 Allergy to milk products; Z95.1 Presence of aortocoronary bypass graft
CPT/HCPCS: 30905; 36415; 80053; 85014; 85018; 85025; 85027; 85610; 86850; 86900; 86901; 96365-59; 96366-59; 96375-59; 96376; 96376-59; 99285-25; G0378; J1170; J2405; J7030

== ENCOUNTER 2019-03-23 00:35 | Observation (INO) | payer MEDICARE ==
[~2019-03-23] VITALS: Ht 175.3 cm; Wt 75.5 kg
[~2019-03-23 00:35] MED LIST changes: +AMOX875 PO; +Percocet 10-321 EACH PO; +TRAM50 PO
[2019-03-23 02:15] LABS: BASOPHILS ABSOLUTE AUTO 0.04 K/mm3 (0.00-0.23); BASOPHILS PERCENT AUTO 1 % (0-2); EOSINOPHILS ABSOLUTE AUTO 0.19 K/mm3 (0.00-0.68); EOSINOPHILS PERCENT AUTO 3 % (0-6); Hematocrit 45.7 % (37.0-53.0); IMMATURE GRAN ABSOLUTE AUTO 0.05 K/mm3 (0.00-0.10); IMMATURE GRAN PERCENT AUTO 1 % (0-1); LYMPHOCYTES ABSOLUTE AUTO 1.49 K/mm3 (0.84-5.20); LYMPHOCYTES PERCENT AUTO 20 % (21-46); MONOCYTES ABSOLUTE AUTO 1.05 K/mm3 (0.16-1.47); MONOCYTES PERCENT AUTO 14 % (4-13); Mean Corpuscular HGB 35.2 pg (26.0-34.0); Mean Corpuscular Volume 101 fL (80-100); Mean Platelet Volume 9.3 fL (9.1-12.4); NEUTROPHILS ABSOLUTE AUTO 4.81 K/mm3 (1.96-9.15); NEUTROPHILS PERCENT AUTO 63 % (41-73); Platelet Count 183 K/mm3 (150-400); RDW Coefficient Variation 14.4 % (11.7-14.2); RDW Standard Deviation 53.1 fL (35.1-46.3); Red Blood Cell Count 4.54 M/mm3 (4.30-5.90); White Blood Cell Count 7.63 K/mm3 (4.00-11.30)
[2019-03-23 02:37] LABS: Alanine Aminotransfer (ALT/SGP 35 U/L (12-78); Albumin, Blood 3.7 g/dL (3.4-5.0); Albumin/Globulin Ratio 1.4 (0.8-1.8); Alk Phos 70 U/L (50-136); Anion Gap 7 mmol/L (6-16); Aspartate Aminotrans (AST/SGOT 33 U/L (12-37); Bilirubin, Total 0.6 mg/dL (0.1-1.0); Blood Urea Nitrogen 18 mg/dL (8-24); Bun/Creatinine Ratio 19.4 (12.0-20.0); CO2, Blood 25 mmol/L (21-32); Chloride, Blood 105 mmol/L (98-108); Creatinine, Blood 0.93 mg/dL (0.60-1.20); Globulin, Blood 2.7 g/dL (2.2-4.0); Glomerular Filtration Rate >60 (60-); Glucose, Blood 95 mg/dL (70-99); Potassium, Blood 3.7 mmol/L (3.5-5.5); Sodium, Blood 137 mmol/L (136-145); Total Protein, Blood 6.4 g/dL (6.4-8.2); Troponin I <0.015 ng/mL (0.000-0.040)
--- NOTE | 2019-03-23 06:40 | NUR ---
PATIENT IS A NEW ADMIT FROM THE ED. ARRIVED VIA W/C. INDEPENDENT TRANSFER FROM W/C TO BED. AXOX 4. STATING 90% ON ROOM AIR. USED O2 2L NC PRN IN ED. BOLUS OF NS IN ED WITH BP OF 84/53. BP NOW 95/83. TELEMETRY TO BE PLACED. PATIENT REPORTS PACEMAKER PAUL CHEST IN 2014. NO FLU VACCINE (SEE ALERGY LIST) LACTOSE INTOLERANT. PATIENT ORIENTED TO ROOM AND CALL LIGHT SYSTEM. REPORTS WANTS TO SLEEP.
[2019-03-23 10:10] LABS: Hematocrit 45.5 % (37.0-53.0); Hemoglobin 15.4 g/dL (13.5-17.5); Mean Corpuscular HGB 34.5 pg (26.0-34.0); Mean Corpuscular HGB Conc 33.8 g/dL (31.5-36.5); Mean Corpuscular Volume 102 fL (80-100); Mean Platelet Volume 9.2 fL (9.1-12.4); Platelet Count 162 K/mm3 (150-400); RDW Coefficient Variation 14.6 % (11.7-14.2); RDW Standard Deviation 54.4 fL (35.1-46.3); Red Blood Cell Count 4.46 M/mm3 (4.30-5.90); White Blood Cell Count 6.42 K/mm3 (4.00-11.30)
[2019-03-23 10:26] LABS: Adenovirus Not Detected (NOT DETECT); Coronavirus 229E Not Detected (NOT DETECT); Coronavirus HKU1 Not Detected (NOT DETECT); Coronavirus NL63 Not Detected (NOT DETECT)
[2019-03-23 10:27] LABS: Bordetella pertussis Not Detected (NOT DETECT); Chlamydophila pneumoniae Not Detected (NOT DETECT); Coronavirus OC43 Detected (NOT DETECT); Human Metapneumovirus Not Detected (NOT DETECT); Human Rhinovirus/Enterovirus Not Detected (NOT DETECT); Influenza A Not Detected (NOT DETECT); Influenza A/2009-H1 Not Detected (NOT DETECT); Influenza A/H1 Not Detected (NOT DETECT); Influenza A/H3 Not Detected (NOT DETECT); Influenza B Not Detected (NOT DETECT); Mycoplasma pneumoniae Not Detected (NOT DETECT); Parainfluenza Virus 1 Not Detected (NOT DETECT); Parainfluenza Virus 2 Not Detected (NOT DETECT); Parainfluenza Virus 3 Not Detected (NOT DETECT); Parainfluenza Virus 4 Not Detected (NOT DETECT); Respiratory Syncytial Virus Not Detected (NOT DETECT)
[2019-03-23 10:30] LABS: Alanine Aminotransfer (ALT/SGP 34 U/L (12-78); Albumin, Blood 3.5 g/dL (3.4-5.0); Albumin/Globulin Ratio 1.2 (0.8-1.8); Alk Phos 65 U/L (50-136); Anion Gap 8 mmol/L (6-16); Aspartate Aminotrans (AST/SGOT 28 U/L (12-37); Bilirubin, Total 0.7 mg/dL (0.1-1.0); Blood Urea Nitrogen 19 mg/dL (8-24); Bun/Creatinine Ratio 20.5 (12.0-20.0); CO2, Blood 23 mmol/L (21-32); Calcium, Blood 8.3 mg/dL (8.5-10.1); Chloride, Blood 105 mmol/L (98-108); Creatinine, Blood 0.93 mg/dL (0.60-1.20); Globulin, Blood 2.8 g/dL (2.2-4.0); Glomerular Filtration Rate >60 (60-); Glucose, Blood 123 mg/dL (70-99); Potassium, Blood 3.8 mmol/L (3.5-5.5); Sodium, Blood 136 mmol/L (136-145); Total Protein, Blood 6.3 g/dL (6.4-8.2)
[2019-03-23 10:32] LABS: CPK Creatine Kinase 186 U/L (39-308); Troponin I <0.015 ng/mL (0.000-0.040)
--- NOTE | 2019-03-23 12:10 | NUR ---
D/C FOLLOW UP APPT: PT INSISTED HE MAKE HIS OWN PCP FOLLOW UP APPT. PT ALREADY ESTABLISHED WITH INDERJIT ACOSTA NP.
[2019-03-23] MEDS ORDERED: BENZ100A PO (12:16)
[2019-03-23] MEDS ORDERED: AZIT250 PO (12:16)
[2019-03-23] MEDS ORDERED: GUAI600T33 PO (12:17)
--- NOTE | 2019-03-23 13:27 | NUR ---
DISCHARGE SUMMARY CHRIS LEFT WITH HIS SON, MEDS FAXED TO HIS PHARMACY. PT DECLINED US TO MAKE AN APPT FOR HIM WITH PCP, HE IS AWARE OF IMPORTANCE AND SAYS HE WILL CALL TO SET UP HIS OWN APPT. CHF EDUCATION DONE. PT DENIES PAIN. TELE SHOWED NSR WHILE ON. PIVS REMOVED, PAPERWORK GONE OVER.
== END 2019-03-23 13:07 | disposition home or self-care (01) ==
LOC: ER 00:35 → MEDS 00:36
PROVIDERS: Emergency Medicine; ADMIT Internal Medicine
DX: J40 Bronchitis, not specified as acute or chronic (principal); I11.0 Hypertensive heart disease with heart failure; I50.22 Chronic systolic (congestive) heart failure; I25.10 Atherosclerotic heart disease of native coronary artery without angina pectoris; E03.9 Hypothyroidism, unspecified; I48.91 Unspecified atrial fibrillation; N40.0 Benign prostatic hyperplasia without lower urinary tract symptoms; Z79.02 Long term (current) use of antithrombotics/antiplatelets; Z79.51 Long term (current) use of inhaled steroids; Z79.899 Other long term (current) drug therapy; Z88.5 Allergy status to narcotic agent; Z88.2 Allergy status to sulfonamides; Z88.8 Allergy status to other drugs, medicaments and biological substances; Z91.012 Allergy to eggs; Z91.018 Allergy to other foods; Z91.011 Allergy to milk products; Z87.891 Personal history of nicotine dependence; Z95.5 Presence of coronary angioplasty implant and graft; Z79.82 Long term (current) use of aspirin
CPT/HCPCS: 0099U; 36415; 71046; 80053; 82550; 84484; 85025; 85027; 85730; 87070; 87077; 87186; 87205; 93005; 93010; 94640; 94760; 96365; 96367; 96375; 99284-25; G0378; J0456; J1644; J2270; J2405; J7030; J7050

== ENCOUNTER 2019-05-15 05:33 | Day surgery (SDC) | payer MEDICARE ==
[~2019-05-15] VITALS: Ht 172.7 cm; Wt 73.7 kg
[~2019-05-15 05:33] MED LIST changes: +AZIT250 PO; +GUAI600T33 PO
--- NOTE | 2019-05-15 06:46 | NUR ---
PT ADMITTED TO [facility]. AGREES WITH PLANNED SURGERY. LUNG SOUNDS CLEAR.
--- NOTE | 2019-05-15 10:53 | NUR ---
Discharge instructions reviewed with patient. Patient verbalizes understanding. Copy given to patient to take home. Patient up to Ambulate independently. Gait steady. ABLE TO URINATE AFTER UP TO BATHROOM. Discharged via wheelchair to private car for ride home WITH SON
--- NOTE | 2019-05-16 09:52 | NUR ---
05/16/19 0952 Shanon Shea VERIFICATIONS: EDIT CHART.
== END 2019-05-15 23:08 | disposition home or self-care (01) ==
LOC: ORSCMMR 05:33 → ORD 07:30 → ORSCMMR 07:30
PROVIDERS: Surgery
PROC: 0YU50JZ Supplement Right Inguinal Region with Synthetic Substitute, Open Approach (ICD-10-PCS; principal; 2019-05-15 07:30)
DX: K40.90 Unilateral inguinal hernia, without obstruction or gangrene, not specified as recurrent (principal); I25.10 Atherosclerotic heart disease of native coronary artery without angina pectoris; J44.9 Chronic obstructive pulmonary disease, unspecified; G47.33 Obstructive sleep apnea (adult) (pediatric); F17.210 Nicotine dependence, cigarettes, uncomplicated; K21.9 Gastro-esophageal reflux disease without esophagitis; I25.2 Old myocardial infarction; E03.9 Hypothyroidism, unspecified; Z79.899 Other long term (current) drug therapy; Z79.01 Long term (current) use of anticoagulants
CPT/HCPCS: 93005; 93010; C1781; J0690; J1100; J2250; J2370; J2405; J2704; J3010; J7120

== ENCOUNTER 2020-04-17 17:06 | Observation (INO) | payer MEDICARE ==
[~2020-04-17] VITALS: Ht 172.7 cm; Wt 65.0 kg
[~2020-04-17 17:06] MED LIST changes: +ANORO ELLIPTA1 EAC1 IH; +EUTHYROX50 MCG PO
--- NOTE | 2020-04-17 17:57 | NUR ---
DIRECT ADMISSION PT ARRIVED TO PCU AT APPROXIMATELY 1715. PT WAS ABLE TO INDEPENDENTLY CHANGE CLOTHING AND SETTLE INTO BED. PT REPORTS CHEST PAIN DUE TO RADIATION A MONTH AGO FOR LUNG CANCER. VS STABLE, PT ON ROOM AIR. PT WAS ABLE TO VERIFY HOME MEDICATIONS AND HISTORY. IV WAS STARTED ON THE LEFT FOREARM BY ROSALINA ANDERSON. PT IS TALKING WITH DR. KOWALSKI AT THIS TIME AND AWAITING DINNER. PT IS AGREEABLE TO NPO AT MIDNIGHT AND HAS RADHA AND CARDIOVERSION PLANNED FOR THE MORNING WITH ROSANA
[2020-04-17 18:16] LABS: BASOPHILS ABSOLUTE AUTO 0.05 K/mm3 (0.00-0.23); BASOPHILS PERCENT AUTO 1 % (0-2); EOSINOPHILS ABSOLUTE AUTO 0.19 K/mm3 (0.00-0.68); EOSINOPHILS PERCENT AUTO 2 % (0-6); Hematocrit 40.4 % (37.0-53.0); Hemoglobin 14.2 g/dL (13.5-17.5); IMMATURE GRAN ABSOLUTE AUTO 0.09 K/mm3 (0.00-0.10); IMMATURE GRAN PERCENT AUTO 1 % (0-1); LYMPHOCYTES ABSOLUTE AUTO 2.19 K/mm3 (0.84-5.20); LYMPHOCYTES PERCENT AUTO 22 % (21-46); MONOCYTES ABSOLUTE AUTO 0.96 K/mm3 (0.16-1.47); MONOCYTES PERCENT AUTO 10 % (4-13); Mean Corpuscular HGB 36.2 pg (26.0-34.0); Mean Corpuscular HGB Conc 35.1 g/dL (31.5-36.5); Mean Corpuscular Volume 103 fL (80-100); Mean Platelet Volume 9.1 fL (9.1-12.4); NEUTROPHILS ABSOLUTE AUTO 6.64 K/mm3 (1.96-9.15); NEUTROPHILS PERCENT AUTO 66 % (41-73); Platelet Count 250 K/mm3 (150-400); RDW Coefficient Variation 14.1 % (11.7-14.2); RDW Standard Deviation 52.8 fL (35.1-46.3); Red Blood Cell Count 3.92 M/mm3 (4.30-5.90); White Blood Cell Count 10.12 K/mm3 (4.00-11.30)
[2020-04-17 18:36] LABS: Alanine Aminotransfer (ALT/SGP 43 U/L (12-78); Albumin, Blood 3.6 g/dL (3.4-5.0); Albumin/Globulin Ratio 1.2 (0.8-1.8); Alk Phos 90 U/L (50-136); Anion Gap 6 mmol/L (6-16); Aspartate Aminotrans (AST/SGOT 22 U/L (12-37); Bilirubin, Total 0.6 mg/dL (0.1-1.0); Blood Urea Nitrogen 21 mg/dL (8-24); Bun/Creatinine Ratio 25.5 (12.0-20.0); CO2, Blood 26 mmol/L (21-32); Calcium, Blood 9.2 mg/dL (8.5-10.1); Chloride, Blood 103 mmol/L (98-108); Creatinine, Blood 0.83 mg/dL (0.60-1.20); Glomerular Filtration Rate >60 (60-); Glucose, Blood 89 mg/dL (70-99); Magnesium, Blood 1.9 mg/dL (1.6-2.4); Potassium, Blood 3.7 mmol/L (3.5-5.5); Sodium, Blood 135 mmol/L (136-145); Total Protein, Blood 6.6 g/dL (6.4-8.2); Troponin I <0.015 ng/mL (0.000-0.040)
[2020-04-17 18:38] LABS: International Normalized Ratio 1.13
--- NOTE | 2020-04-17 18:51 | NUR ---
PT REPORTS PAIN IN HIS CHEST DUE TO RADIATION FOR LUNG CANCER APPROXIMATELY 1 MONTH AGO; PT REPORTS "THE NERVES WERE AGGRIVATED AND HAS LEFT ME WITH SOME PAIN" PT WAS GIVEN MORPHINE FOR BREAKTHROUGH PAIN AND OXYCODONE PRN. VS STABLE. PT HAS NO EDEMA; PT ON ROOM AIR. HEART SOUNDS IRREGULAR, TELE CONFIRMED AT ADMISSION, AFIB WITH RVR HR 129. PT DENIES CHEST PRESSURE, SOB, ADB PAIN. PT HAS BEEN INDEPENDENT WITH DRESSING AND TRASNFERRING FROM WHEELCHAIR TO BED. PT CONSUMED SMALL AMOUNTS OF DINNER AND WILL BE NPO AT MIDNIGHT.
[2020-04-17 20:27] LABS: Influenza A, PCR Negative (NEGATIVE); Influenza B, PCR Negative (NEGATIVE); Resp Syncytial Virus, PCR Negative (NEGATIVE); SARS-Cov-2 (COVID-19) PCR, MMC Negative (NEGATIVE)
[2020-04-18 02:18] LABS: International Normalized Ratio 1.15; Prothrombin Time Results 12.2 Sec (9.7-11.5)
[2020-04-18 05:21] LABS: BASOPHILS ABSOLUTE AUTO 0.04 K/mm3 (0.00-0.23); BASOPHILS PERCENT AUTO 0 % (0-2); EOSINOPHILS ABSOLUTE AUTO 0.15 K/mm3 (0.00-0.68); EOSINOPHILS PERCENT AUTO 1 % (0-6); Hematocrit 41.1 % (37.0-53.0); Hemoglobin 14.2 g/dL (13.5-17.5); IMMATURE GRAN ABSOLUTE AUTO 0.12 K/mm3 (0.00-0.10); IMMATURE GRAN PERCENT AUTO 1 % (0-1); LYMPHOCYTES ABSOLUTE AUTO 1.93 K/mm3 (0.84-5.20); LYMPHOCYTES PERCENT AUTO 18 % (21-46); MONOCYTES ABSOLUTE AUTO 0.92 K/mm3 (0.16-1.47); MONOCYTES PERCENT AUTO 9 % (4-13); Mean Corpuscular HGB 35.8 pg (26.0-34.0); Mean Corpuscular HGB Conc 34.5 g/dL (31.5-36.5); Mean Corpuscular Volume 104 fL (80-100); Mean Platelet Volume 9.1 fL (9.1-12.4); NEUTROPHILS PERCENT AUTO 71 % (41-73); Platelet Count 239 K/mm3 (150-400); RDW Standard Deviation 53.3 fL (35.1-46.3); Red Blood Cell Count 3.97 M/mm3 (4.30-5.90); White Blood Cell Count 10.76 K/mm3 (4.00-11.30)
[2020-04-18 05:48] LABS: Alanine Aminotransfer (ALT/SGP 41 U/L (12-78); Albumin, Blood 3.4 g/dL (3.4-5.0); Albumin/Globulin Ratio 1.1 (0.8-1.8); Alk Phos 85 U/L (50-136); Anion Gap 7 mmol/L (6-16); Aspartate Aminotrans (AST/SGOT 26 U/L (12-37); Bilirubin, Total 0.7 mg/dL (0.1-1.0); Blood Urea Nitrogen 18 mg/dL (8-24); Bun/Creatinine Ratio 22.3 (12.0-20.0); CHOL/HDL RATIO 1.4; CO2, Blood 26 mmol/L (21-32); Calcium, Blood 8.6 mg/dL (8.5-10.1); Chloride, Blood 103 mmol/L (98-108); Cholesterol 90 mg/dL (50-200); Creatinine, Blood 0.81 mg/dL (0.60-1.20); Glomerular Filtration Rate >60 (60-); Glucose, Blood 91 mg/dL (70-99); HDL Cholesterol 66 mg/dL (>39); LDL/HDL RATIO 0.2; Low Density Lipoprotein Chol 11 mg/dL (0-110); Magnesium, Blood 1.9 mg/dL (1.6-2.4); Potassium, Blood 3.8 mmol/L (3.5-5.5); Sodium, Blood 136 mmol/L (136-145); Total Protein, Blood 6.4 g/dL (6.4-8.2); Triglycerides 63 mg/dL (30-160); Troponin I <0.015 ng/mL (0.000-0.040); Very Low Density Lipoprot Chol 12 mg/dL (6-32)
--- NOTE | 2020-04-18 07:56 | NUR ---
SUMMARY PATIENT IS ALERT AND ORIENTED. INDEPENDENT WITH REPOSITIONING AND SBA TO BATHROOM BECAUSE OF IV. CONTINENT OF BOWEL AND BLADDER. CHRONIC NERVE PAIN IN CHEST THAT WRAPS LIKE A BAND TO HIS BACK, MEDICATED SEE EMAR. 02 SATS >90% ON RA. PATIENT IS A. FIB AND NEEDED METOPROLOL PUSH DUE TO HIGH HR, SEE EMAR. NPO AT MIDNIGHT FOR PROCEDURE IN THE AM. CALL LIGHT IN REACH.
--- NOTE | 2020-04-18 08:07 | NUR ---
ASSUMED CARE FROM NOC RN PT WAS RESTING DURING REPORT. PT CONTINUES TO REPORT CHEST PAIN DUE TO RADIATION FOR LUNG CANCER; PT STATED THE OXYCODONE AND MORPHINE DID NOT HELP MUCH WITH THE NERVE CHEST PAIN. PT HAS REPORTED FEELING FLUTTERS AND SYMPTOMPATIC DUE TO AFIB CONVERTED TO ATRIAL FLUTTER. PT IS CURRENTLY VISITING WITH DR. WAYNE TO REVIEW RDAHA AND CARDIO VERSION PLANS FOR TODAY
--- NOTE | 2020-04-18 08:30 | NUR ---
Called pacemaker clinic and left a message requesting device check following RADHA/cardioversion today. Plan at this time is for the procedure to start at 0900today.
--- NOTE | 2020-04-18 09:55 | NUR ---
RADHA/CARDIOVERSION WITH DR WAYNE 904 Team arrived to PCU 11: Mckenzie powell, Dr. Wayne, Karen Avery RT, Kelly Jaimes, Angelita Tom RN and Katherine Meng, supercharger mechanic. 906 Pt's dentures were removed by the patient. Pt was put on 2 l/min of oxygen due to spo2 91%. Heparin infusing via left arm IV at prescribed rate, NS infusing via right arm at 10 cc/hour. 908 TIME OUT done. 909 1 mg versed and 25 mg fentanyl administered IV. 913 1 mg versed and 25 mg fentanyl administered IV. 914 NS bolus started due to low blood pressure 916 Probe in. 924 1 mg versed IV administered 925 Probe OUT. NS bolus stopped, NS infusion changed to 10 cc/hour. 927 1 mg versed IVadministered 929 25 mg fentanyl IV administered 32 Oxygen dose increased to 4 l/min 32 Shock given at 100Joules by Dr. Wayne. Pt converted to NSR. 0934 NS bolus restarted for low blood pressure. 934 PROCEDURE ENDED. Pt is continuing to be monitored. He remains lethargic. EKG post cardioversion completed. Device check done in the room by Milena from the heart center. Anthony from lab here to draw PTT.
[2020-04-18] MEDS ORDERED: ELIQUIS5 MG PO (14:10)
[2020-04-18] MEDS ORDERED: DRON400T (14:11)
--- NOTE | 2020-04-18 15:07 | NUR ---
DISCHARGE PT WAS ADMITTED FOR SYMPTOMATIC AFIB WITH RVR. PT WAS CARDIOVERTED THIS MORNING FOLLOWING A RADHA AT BEDSIDE. PT WOKE UP FOLLOWING THE CARDIOVERSION AND WAS ABLE TO TOLERATE PO. PT MAINTAINED NSR AND HR BELOW 100. PT WAS GIVEN DISCHARGE INSTRUCTIONS REGARDING NEW MEDICATIONS AND EDUCATION. [facility] HOWEVER THE PT'S MULTAQ WAS NOT COVERED BY INSURANCE. DR. WAYNE HAD RN KMO SEND THE PT TO HER OFFICE TO RETREIVE SAMPLES OF THE MULTAQ TO HOLD HIM OVER UNTIL HIS FOLLOW UP APPOINTMENT NEXT WEEK; PT WAS INFORMED AND AGREED. PT WAS DISCHARGED AND LEFT THE PCU VIA WHEELCHAIR ACCOMPANIED BY FEEDER WORKER POWER UNIT OPERATOR TDS. VS STABLE, PT ON RA; AND INDEPENDETLY DRESSED AND TRANSFERRED TO WHEELCHAIR FOR DISCHARGE
[2020-07-30] MEDS ORDERED: THYR60 PO (15:13)
== END 2020-04-18 14:30 | disposition home or self-care (01) ==
LOC: PCU 17:06
PROVIDERS: Internal Medicine Cardiovascular Disease; Pharmacist; Student in an Organized Health Care Education/Training Program; ADMIT Internal Medicine
DX: I48.91 Unspecified atrial fibrillation (principal); I48.92 Unspecified atrial flutter; I11.0 Hypertensive heart disease with heart failure; I50.20 Unspecified systolic (congestive) heart failure; I27.20 Pulmonary hypertension, unspecified; I25.119 Atherosclerotic heart disease of native coronary artery with unspecified angina pectoris; J44.9 Chronic obstructive pulmonary disease, unspecified; E03.9 Hypothyroidism, unspecified; R42 Dizziness and giddiness; I44.2 Atrioventricular block, complete; G89.3 Neoplasm related pain (acute) (chronic); E78.5 Hyperlipidemia, unspecified; K21.9 Gastro-esophageal reflux disease without esophagitis; Z91.012 Allergy to eggs; Z91.011 Allergy to milk products; Z23 Encounter for immunization; Z91.018 Allergy to other foods; Z88.2 Allergy status to sulfonamides; Z88.5 Allergy status to narcotic agent; Z88.8 Allergy status to other drugs, medicaments and biological substances; Z79.899 Other long term (current) drug therapy; Z79.02 Long term (current) use of antithrombotics/antiplatelets; Z95.5 Presence of coronary angioplasty implant and graft; Z87.891 Personal history of nicotine dependence; Z20.822 Contact with and (suspected) exposure to COVID-19; Z85.46 Personal history of malignant neoplasm of prostate; Z92.3 Personal history of irradiation; Z95.0 Presence of cardiac pacemaker
CPT/HCPCS: 0241U; 36415; 71046; 80053; 80061; 83735; 84443; 84484; 85025; 85610; 85730; 87040; 92960; 93005; 93010; 93280; 93288; 93312; 93325; 94640; 94760; 96374; 96375; 99152; 99153; A9270; G0378; J1644; J2250; J2270; J3010; J7040

== ENCOUNTER 2020-07-31 05:51 | Day surgery (SDC) | payer MEDICARE ==
[~2020-07-31 05:51] MED LIST changes: +DRON400T; +ELIQUIS5 MG PO
--- NOTE | 2020-07-31 07:36 | NUR ---
PT IN SR; EKG COMPLETED AND DR WAYNE REVIEWED. DR WAYNE WOULD LIKE PT'S PACER INTEROGATED.
--- NOTE | 2020-07-31 07:50 | NUR ---
WILMER BHAT IN ROOM TO PERFORM PACER CHECK.
--- NOTE | 2020-07-31 08:08 | NUR ---
DR WAYNE IN ROOM TO DISCUSS CANCELLING CARDIOVERSION BECAUSE PT UPON ARRIVAL IS IN SINUS RHYTHM.
--- NOTE | 2020-07-31 08:27 | NUR ---
CARDIOVERSION CANCELLED DUE TO PT IN SINUS RHYTHM UPON ARRIVAL TO HEART CENTER. DISCHARGE INSTRUCTIONS REVIEWED ALL QUESTIONS ANSWERED.
== END 2020-07-31 23:15 | disposition home or self-care (01) ==
LOC: MHTC 05:51 → EDSTATUS 06:30 → MHTC 06:37 → MOI CT 14:00 → MHTC 23:15
DX: I48.92 Unspecified atrial flutter (principal); I48.91 Unspecified atrial fibrillation; C34.12 Malignant neoplasm of upper lobe, left bronchus or lung; Z87.891 Personal history of nicotine dependence; I25.10 Atherosclerotic heart disease of native coronary artery without angina pectoris; Z95.5 Presence of coronary angioplasty implant and graft; J44.9 Chronic obstructive pulmonary disease, unspecified; E78.5 Hyperlipidemia, unspecified; E03.9 Hypothyroidism, unspecified; Z79.899 Other long term (current) drug therapy; Z79.01 Long term (current) use of anticoagulants; Z88.2 Allergy status to sulfonamides; Z88.8 Allergy status to other drugs, medicaments and biological substances; Z88.5 Allergy status to narcotic agent; Z95.0 Presence of cardiac pacemaker; Z20.822 Contact with and (suspected) exposure to COVID-19
CPT/HCPCS: 71250; 92960; 93005; 93010; 93288

== ENCOUNTER 2020-10-30 11:34 | Day surgery (SDC) | payer MEDICARE ==
[~2020-10-30] VITALS: Ht 172.7 cm; Wt 66.9 kg
[2020-10-30] MEDS ORDERED: NITR.4SL SL (12:29)
[2020-10-30] MEDS ORDERED: CLOP75 PO (12:29)
[2020-10-30] MEDS ORDERED: FISH OIL 1,2001 EAC1 PO (12:30)
[2020-10-30] MEDS ORDERED: Co Q-10300 MG PO (12:31)
[2020-10-30] MEDS ORDERED: FUROSEMIDE40 MG PO (12:32)
[2020-10-30] MEDS ORDERED: NORTRIPTYLINE H PO (12:32)
[2020-10-30] MEDS ORDERED: PREGABALIN25 MG PO (12:33)
[2020-10-30] MEDS ORDERED: TAMSULOSIN HCL0.4 M1 PO (12:35)
[2020-10-30] MEDS ORDERED: LIDO5TO TOP (12:37)
--- NOTE | 2020-10-30 14:56 | NUR ---
10/30/20 8504 CAMERON SKINNER IN PACU AND STEP DOWN WELL. STATES PROBLEM IS HE DOESN'T DEEP BREATH. GIVING HIM A INSENTIVE SPIROM. TO HELP HIM WITH DEEP BREATHING AND OPEN UP HIS LUNGS.
== END 2020-10-30 16:10 | disposition home or self-care (01) ==
LOC: ORSCSDS 11:34
PROVIDERS: Surgery
PROC: 0YU60JZ Supplement Left Inguinal Region with Synthetic Substitute, Open Approach (ICD-10-PCS; principal; 2020-10-30 13:00)
DX: K40.90 Unilateral inguinal hernia, without obstruction or gangrene, not specified as recurrent (principal); I25.10 Atherosclerotic heart disease of native coronary artery without angina pectoris; Z95.0 Presence of cardiac pacemaker; I27.20 Pulmonary hypertension, unspecified; I10 Essential (primary) hypertension; E78.5 Hyperlipidemia, unspecified; J44.9 Chronic obstructive pulmonary disease, unspecified; I48.0 Paroxysmal atrial fibrillation; E03.9 Hypothyroidism, unspecified; Z79.01 Long term (current) use of anticoagulants; Z79.899 Other long term (current) drug therapy; Z87.891 Personal history of nicotine dependence
CPT/HCPCS: C1781; J0690; J1100; J2405; J2704; J3010; J7120